=== PATIENT | female | born 1935 | race Caucasian/White ===

== ENCOUNTER 2017-07-13 13:54 | Emergency (ER) | payer BC, MEDICARE ==
[~2017-07-13] VITALS: Ht 154.9 cm; Wt 60.0 kg
[2017-07-13 13:57] VITALS: BP 203/76; PULSE 87; RESP 20; TEMP 97.6; O2SAT 100
--- NOTE | 2017-07-13 15:05 | RADRPT ---
EXAM DATE: 07/13/2017 2:48 PM EDT AGE/SEX: 82 years / Female INDICATIONS: Fall, complains of left shoulder CLINICAL DATA: This is the patient's initial encounter. Patient reports that signs and symptoms have been present for 1 day and indicates a pain score of 10/10. MEDICAL/SURGICAL HISTORY: None. None. COMPARISON: No prior [facility] exams available for comparison. FINDINGS: Fracture surgical neck of the humerus with moderate angulation. The humeral head remains aligned with the glenoid. CONCLUSION: Fracture surgical neck of the humerus. Moderate angulation. Electronically signed by: Adalberto Wang MD 07/13/2017 3:03 PM EDT
[2017-07-13] MEDS ORDERED: METOCLOPRAMIDE HCL 10 MG/2 ML VIAL IV PUSH ONE (15:30)
[2017-07-13] MEDS ORDERED: MORPHINE SULFATE 4 MG/ML INJ IV PUSH ONE (15:30)
--- NOTE | 2017-07-13 16:17 | RADRPT ---
EXAM DATE: 07/13/2017 4:09 PM EDT AGE/SEX: 82 years / Female INDICATIONS: Fell walking up the stairs, landed on shoulder. CLINICAL DATA: This is the patient's initial encounter. Patient reports that signs and symptoms have been present for 1 day and indicates a pain score of 6/10. MEDICAL/SURGICAL HISTORY: Diabetes. Appendectomy. Hysterectomy. RADIATION DOSE: 12.05 CTDI (mGy) COMPARISON: [facility], HUMERUS LEFT (MIN 2VWS), 07/13/2017. . TECHNIQUE: Multiple contiguous axial images were acquired using a multirow detector CT scanner witho ut contrast. Multiplanar reconstruction was performed in the sagittal and coronal planes. Using aut omated exposure control and adjustment of the mA and/or kV according to patient size, radiation dose was kept as low as reasonably achievable to obtain optimal diagnostic quality images. FINDINGS: There is a mildly comminuted transverse fracture through the humeral neck. The distal humerus is disp laced medially approximately one shaft width. There is mild overriding and impaction. There is a norm al glenohumeral relationship. The glenoid and scapular intact. There are degenerative changes in the chromic clavicular joint. There is diffuse osteopenia. The visualized ribs are intact. There is overl kriss soft tissue swelling. CONCLUSION: 1. Mildly comminuted fracture through the left humeral neck. Electronically signed by: Anthony Alaniz MD 07/13/2017 4:16 PM EDT
--- NOTE | 2017-07-13 17:17 | PD ---
Physical Exam Date Seen by Provider: Jul 13, 2017 Data Data Last Documented VS Vital Signs Date Time Temp Pulse Resp B/P (MAP) Pulse Ox O2 Delivery O2 Flow Rate FiO2 07/13/17 14:07 65 18 100 Room Air 07/13/17 13:57 97.6 203/76 (118) Orders Orders Humerus (Min 2vws) (07/13/17 ) Morphine Inj (Morphine Inj) (07/13/17 15:30) Metoclopramide Inj (Reglan Inj) (07/13/17 15:30) Ct Shoulder W/O Contrast (07/13/17 ) Sling And Swathe (07/13/17 ) Ed Discharge Order (07/13/17 17:10) [facility] Medical Record Reviewed: Yes Supervised Visit with LUCIANA: Yes Narrative Course I, Dr. Lockhart, have reviewed the advance practice practitioner's documentation and am in agreement, met with the patient face to face, made the diagnosis, and the medical decision making was done by me. *My assessment and Findings: Patient is an 82-year-old female who presents to emergency room after she tripped and fell and injured her left shoulder. Patient denies any trauma to head or neck, denies any loss of consciousness. Patient currently not on any anticoagulants, only complains of left upper extremity pain. Last Impressions Upper Extremity CT 07/13/17 0000 Signed Impressions: CONCLUSION: 1. Mildly comminuted fracture through the left humeral neck. Humerus X-Ray 07/13/17 0000 Signed Impressions: CONCLUSION: Fracture surgical neck of the humerus. Moderate angulation. Patient with fracture to the neck of the humerus, case was reviewed with orthopedic surgeon who recommends sling and pain medications with outpatient follow up. Nury Lockhart DO Jul 13, 2017 17:17
[2017-07-13] MEDS ORDERED: PERC5TAB12 PO (17:18)
[2017-07-13] MEDS ORDERED: DICL75TA PO (17:18)
--- NOTE | 2017-07-13 17:20 | PD ---
HPI Chief Complaint: Fall Time Seen by Provider: 14:17 Travel History International Travel<30 days: No Contact w/Intl Traveler<30days: No Traveled to known affect area: No History of Present Illness HPI 82-year-old male presents to the ED for evaluation of injury to the left shoulder. Per patient she had a mechanical fall today and will trying to get up some steps. Per patient she missed a step and she landed on her left shoulder. She denies hitting her head or losing consciousness. No blood thinner use. She does have an abrasion to her elbow but she is concerned about it. Patient is mainly concerned about the shoulder pain. Per patient the pain is worse with movement. She has a makeshift sling with the only area. Denies any numbness, tendon, weakness. No previous injury. Has an orthopedic doctor. Has not taken anything for this. Pain per patient is 7 out of 10. No back or neck pain. No hip pain. Allergies to penicillin. PFSH Past Medical History Diabetes: Yes Patient Takes Glucophage: No ?: Not Past Surgical History Appendectomy: Yes Hysterectomy: Yes Social History Alcohol Use: No Tobacco Use: No Substance Use: No Allergies-Medications (Allergen,Severity, Reaction): Coded Allergies: Penicillins (Verified Allergy, Unknown, 07/13/17) PATIENT STATES SHE THINKS IT MAY BE A RASH Reported Meds & Prescriptions Reported Meds & Active Scripts Active Percocet (Oxycodone-Acetaminophen) 5-325 mg Tab 1 Tab PO Q6H PRN Diclofenac Sodium DR (Diclofenac Sodium) 75 Mg Tabdr 75 Mg PO BID PRN Review of Systems Except as stated in HPI: all other systems reviewed are Neg Physical Exam Narrative GENERAL: SKIN: Warm and dry. HEAD: Atraumatic. Normocephalic. EYES: Pupils equal and round. No scleral icterus. No injection or drainage. ENT: No nasal bleeding or discharge. Mucous membranes pink and moist. Tongue is midline. No uvula deviation. NECK: Trachea midline. No JVD. CARDIOVASCULAR: Regular rate and rhythm. No murmurs, S3, S4. RESPIRATORY: No accessory muscle use. Clear to auscultation. Breath sounds equal bilaterally. GASTROINTESTINAL: Abdomen soft, non-tender, nondistended. Hepatic and splenic margins not palpable. MUSCULOSKELETAL: Extremities without clubbing, cyanosis, or edema. No obvious deformities. Full range of motion of the upper and lower extremities bilaterally with exception of the left shoulder. Patient has some bruising and swelling noted on the left shoulder. Swelling noted. Patient does have some bruising and abrasion noted to the elbow with minimal bleeding. No obvious skin tear lacerations, lumbar, thoracic, cervical spine tenderness to evaluation. No knee pain. No ankle pain. NEUROLOGICAL: Awake and alert. No obvious cranial nerve deficits. Motor grossly within normal limits. Five out of 5 muscle strength in the arms and legs. Normal speech. PSYCHIATRIC: Appropriate mood and affect; insight and judgment normal. Data Data Last Documented VS Vital Signs Date Time Temp Pulse Resp B/P (MAP) Pulse Ox O2 Delivery O2 Flow Rate FiO2 07/13/17 14:07 65 18 100 Room Air 07/13/17 13:57 97.6 203/76 (118) Orders Orders Humerus (Min 2vws) (07/13/17 ) Morphine Inj (Morphine Inj) (07/13/17 15:30) Metoclopramide Inj (Reglan Inj) (07/13/17 15:30) Ct Shoulder W/O Contrast (07/13/17 ) Sling And Swathe (07/13/17 ) Ed Discharge Order (07/13/17 17:10) [facility] Medical Decision Making Medical Screen Exam Complete: Yes Emergency Medical Condition: Yes Medical Record Reviewed: Yes Interpretation(s) Last Impressions Upper Extremity CT 07/13/17 0000 Signed Impressions: CONCLUSION: 1. Mildly comminuted fracture through the left humeral neck. Humerus X-Ray 07/13/17 0000 Signed Impressions: CONCLUSION: Fracture surgical neck of the humerus. Moderate angulation. Differential Diagnosis fracture versus sprain versus strain versus bruise versus contusion Narrative Course 82-year-old female that presents to the ED for evaluation of injury to her left shoulder. Patient was fracture. She was unsure of humeral neck fracture. Case discussed with Dr. Butt over the phone who reviewed the x-rays and recommends CT and likely discharge home. CT was ordered and was essentially unremarkable female neck fracture. Case was discussed again with Dr. Butt who recommends that the patient can follow-up in the office and likely nonsurgical her him. Patient was put in a sling and swath for his recommendations. Patient was given pain medications. My attending Dr. Lockhart evaluated the patient and the patient the results. Patient understands that she is followed as an outpatient. See ED worsening. Follow with PCP. Diagnosis Primary Impression: Humeral surgical neck fracture Qualified Codes: S42.215A - Unspecified nondisplaced fracture of surgical neck of left humerus, initial encounter for closed fracture Referrals: Yamil Butt MD Patient Instructions: General Instructions, Narcotic given in the ED Additional Instructions: Take medications as prescribed. Follow-up with PCP. See ED for any worsening symptoms. Do not drink or drive while taking pain medication. Apply ice or heat as needed for pain Med/Other Pt SpecificInfo: Prescription(s) given Scripts Oxycodone-Acetaminophen (Percocet) 5-325 mg Tab 1 TAB PO Q6H Y for PAIN, #15 TAB 0 Refills Prov: Nury Lockhart DO 07/13/[address] (Diclofenac Sodium DR) 75 Mg Tabdr 75 MG PO BID Y for PAIN SCALE 1 TO 10, #20 TAB 0 Refills Prov: Nury Lockhart DO 07/13/17 Disposition: 01 DISCHARGE HOME Condition: Stable Ben Valles Jul 13, 2017 17:20
== END 2017-07-13 23:19 | disposition home or self-care (01) ==
LOC: NEPC 13:54
DX: S42.215A Unspecified nondisplaced fracture of surgical neck of left humerus, initial encounter for closed fracture (principal); S50.312A Abrasion of left elbow, initial encounter; E11.9 Type 2 diabetes mellitus without complications; W18.30XA Fall on same level, unspecified, initial encounter; Z88.0 Allergy status to penicillin
CPT/HCPCS: 29240; 73060; 73200; 96374; 96375; 99284; J2270; J2765